=== PATIENT | male | born 1950 | race Hispanic/Latino ===

== ENCOUNTER 2017-07-13 09:08 | Day surgery (SDC) | payer MEDICARE, OTHER ==
[2017-07-05 11:16] VITALS: BMI 26.4
[2017-07-13] MEDS ORDERED: Propofol 10 mg/ml Inj (20 ML) ONE (10:54)
[2017-07-13] MEDS ORDERED: Midazolam 2 MG/2 ML VIAL ONE (10:54)
[2017-07-13] MEDS ORDERED: Lactated Ringer's 1,000 ML IV ONE (10:55)
[2017-07-13] MEDS ORDERED: ceFAZolin IV 2 gm in Dextrose 1 GM/50 ML BAG IVPB ONE (10:55)
[2017-07-13] MEDS ORDERED: Lidocaine 2% w Epi 1:100,000 Inj IJ ONE (10:55)
[2017-07-13] MEDS ORDERED: Succinylcholine Chloride 20 mg/ml Syr (5 ml) IV ONE (10:57)
[2017-07-13] MEDS ORDERED: Rocuronium 10 mg/ml (10 ml) ONE (10:57)
[2017-07-13] MEDS ORDERED: Etomidate 20 mg/10ml Inj IV ONE (11:06)
[2017-07-13] MEDS: HYDROmorphone 0.5 mg/0.5 ml ISec IVP PRN ×2 (12:24→12:58)
[2017-07-13] MEDS ORDERED: HYDROmorphone 0.5 mg/0.5 ml ISec ONE (13:12)
--- NOTE | 2017-07-13 13:17 | PCM.SURG1 ---
Surgeon's Initial Post Op Note - Surgeon's Notes Surgeon: Dr. Hillman Cabin Man: Dr. Vasquez PGY3; Odilia Stallworth Pre-Operative Diagnosis: Ventral Hernia, Diastasis Recti Operative Findings: same Post-Operative Diagnosis: same Operation Performed: Repair of Ventral Hernia. Repair of Diastasis Recti with prolite mesh Specimen/Specimens Removed: hernia contents Estimated Blood Loss: EBL {In ML}: 5 Blood Products Given: N/A Drains Used: Mark Post-Op Condition: Good Date of Surgery/Procedure: 07/13/17 Time of Surgery/Procedure: 13:16
[2017-07-13] MEDS ORDERED: Oxycodone/Acetaminophen 5/325 mg Tab PO STA (13:48)
[2017-07-13 14:01] VITALS: RESP 18; O2SAT 95
--- NOTE | 2017-07-13 14:19 | OP ---
PROCEDURE DATE: 07/13/2017 PREOPERATIVE DIAGNOSIS: Recurrent umbilical hernia and ventral hernia. POSTOPERATIVE DIAGNOSIS: Recurrent umbilical hernia and ventral hernia. PROCEDURE PERFORMED: Repair with mesh. FINDINGS: There were 2 small recurrent hernias noted just above the umbilicus. There was a large weakness in the midline, consistent with a large diastasis recti. Some scarring was noted around the area, but no mesh was identified. The dental hygiene administrative assistant for this procedure is Mar Albright. DESCRIPTION OF PROCEDURE: Under general anesthesia, the patient was prepared and draped in usual fashion. An initial skin incision was made extending the umbilicus and just below the xiphoid process. The incision was carried all the way down to the fascial level. Dissection was carried out laterally on both sides and going around the umbilicus. The 2 hernias were noted just above the umbilicus. The dissection was carried around the umbilicus exposing the entire fascial level. The hernia was then excised and the defect was then closed with multiple sutures of 0 Prolene. The midline was then plicated with multiple interrupted sutures of 0 Prolene, and then, a large mesh was picked for the whole area and it was secured in multiple sutures of 0 Prolene. The subcutaneous tissue was closed with the sutures of 3-0 Vicryl. A drain was left in place and the skin was closed with multiple skin baldemar. ESTIMATED BLOOD LOSS: Probably approximates 50 mL. The patient tolerated the procedure quite well, left the operating room in good condition. Edin Hillman MD
[2017-07-13 14:41] VITALS: BP 138/81; PULSE 83; TEMP 97.6
== END 2017-07-13 14:53 | disposition home or self-care (01) ==
LOC: C.SDS 09:08
PROVIDERS: ATTEND Surgery
DX: K43.9 Ventral hernia without obstruction or gangrene (principal); K42.9 Umbilical hernia without obstruction or gangrene
CPT/HCPCS: 36415; 49560; 49568; 49585; 86850; 86900; 88302; C1781; J0690; J1170; J2250; J2405; J2704; J3010; J7120

== ENCOUNTER 2018-12-11 08:34 | Outpatient (CLI) | payer MEDICARE, OTHER | END 2018-12-11 08:35 | disposition home or self-care (01) | LOC: C.VASC 08:34 | DX: I71.4 Abdominal aortic aneurysm, without rupture (principal) ==